=== PATIENT | female | born 1960 | race Caucasian/White ===

== ENCOUNTER 2023-07-15 23:28 | Observation (INO) ==
--- NOTE | 2023-07-16 00:14 | XRay Report ---
SINGLE VIEW CHEST CLINICAL HISTORY: Hypertension. Headache. FINDINGS: An AP, portable, upright chest radiograph is compared to chest x-ray and chest CT dated 11/25. The patient is status post midline sternotomy. The heart is enlarged. The pulmonary vasculatu re is noncongested. 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 Chronic interstiti al thickening is similar to previous. There is mild bibasilar scarring/atelectasis. No airspace conso lidation or large pleural effusion is identified. No pneumothorax is seen. The skeletal structures ar e osteopenic. The bony thorax is grossly intact. IMPRESSION: 1. Cardiomegaly with no acute cardiopulmonary abnormality identified. 2. 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 ACT 112: Negative or not required by law. Electronically signed by: Jamari Glass M.D. 07/16/2023 12:13 AM
[2023-07-16] MEDS ORDERED: SODIUM CHLORIDE 0.9% 1,000 ML IV SCH (00:15)
[2023-07-16] MEDS ORDERED: OPTIRAY 320 125ml IV ONE ×2 (00:27→00:59)
--- NOTE | 2023-07-16 00:28 | Emergency Department Note ---
Impression & Plan Headache, Hypertensive urgency, Chronic thoracic aortic dissection ED Provider Note NAME: KARINA HART AGE: 62 SEX: Female INFORMANT: Patient ED PROVIDER(S): William Tse MD CHIEF COMPLAINT: Headache PLAN: Disposition: Admitted Outpatient prescription management: none Referral: None MEDICAL DECISION MAKING: Patient presented because of headache that was sudden in onset. She notes a history of migraines but states this feels different. Patient was concerned about her blood pressure. She is unsure of her blood pressure medications that she takes but states that she takes them regularly. She had a nonfocal neurologic examination. No nuchal rigidity. She was significantly hypertensive and based on record review this was much higher than her usual BPs on presentation. The patient was monitored. She was started on gentle IV fluids as well as IV acetaminophen. I-STAT performed. She had CT and CT angiography ordered. I was contacted by CT as they were concerned that the patient appears to have a dissection of the aortic arch and base of the carotids. Additional CT imaging was ordered to cover the aorta and further evaluate. I did review the patient's records. She was diagnosed with a thoracic aortic dissection in November of this year. Stat read was contacted for an emergent read. Patient was given 10 mg of IV labetalol as she was still very hypertensive. Record review indicates the patient's blood pressure is typically in the normal range and this is not consistent with her prior measurements. Patient did require a second dose of medication for blood pressure control. Due to her heart rate being in the 50s labetalol was held and she was given a dose of hydralazine. Patient did refuse the IV acetaminophen. She was having significant improvement of her pain without analgesia. CT of the head and CT angiography of the head did not reveal any acute findings. No aneurysm or bleed. The CT of the chest abdomen pelvis appears to have chronic stable findings. Patient's blood pressure is improving. Given the acute change in her blood pressure and symptoms of headache I discussed further management in the hospital. Patient initially was reluctant but then was in agreement. I am concerned about hypertensive urgency and feel that her blood pressure needs to be monitored and controlled due to her prior history of the dissection. Consultation was made with Dr. Jn Patel, [facility] service. Case discussed diagnostics reviewed. Patient was seen in the ER and admitted for further management Care/management discussed with: Discussed with manager specialty Level of care consideration(s): After review of the information above and other included data, I feel the patient requires escalation of care to admission Triage Nursing notes: reviewed and agree them. Vital Signs: reviewed and remarkable for severe hypertension Additional History obtained from: none Chronic Medical/Social Conditions affecting care: Thoracic aortic dissection history Prior/ Outside/ External records reviewed: none Differential Diagnosis: Hypertensive emergency, migraine headache, meningitis, sinusitis, CO exposure, ICH, SAH, infection, tumor, headache, sinus thrombosis, arterial dissection, as well as other pathologies. Diagnostics, independently interpreted by me: ECG: Twelve-lead ECG reveals sinus bradycardia at [address] No ST elevation or depression. Cardiac Monitoring: Cardiac monitoring ordered by me: The patient was placed on continuous cardiac monitoring and observed. It revealed a normal sinus rhythm at 61 beats per minute without ectopy or evidence of dysrhythmia. Medical decision rules: none Imaging studies: CT and CT angiography of the head, neck, chest abdomen pelvis reveals no acute intracranial findings. No aneurysm. Patient has chronic findings of thoracic dissection involving the carotids down through the iliac. There appears to be a chronic left renal insult. I refer you to the EMR for further details. HPI: 62 year old Female arrives for evaluation of headache that started just before arrival. Patient states that she was doing well all day today. She has a history of migraines but this feels different. She notes sudden onset of generalized headache. She described the pain as a 10 out of 10. She states her migraines are usually 8 or 9 out of 10. Patient denies any other symptoms. No trauma. She took no medication for the symptoms. Due to the level of pain the patient was concerned and called 911. Pt denies LOC, fevers, chills, diaphoresis, visual changes, neck pain, chest pain, breathing difficulties, nausea, vomiting, abdominal pain, back pain, melena, hematochezia, urinary symptoms, numbness, weakness, lymphadenopathy, rash, or other complaints. PAST MEDICAL HISTORY: See Below, hypertension, migraine PAST SURGICAL HISTORY: See Below, appendectomy SOCIAL HISTORY: See Below, non-smoker HOME MEDICATIONS: See Below ALLERGIES: See Below VITALS: See Below PHYSICAL EXAMINATION: GENERAL: Awake, alert, well-appearing, in no distress HENT: Normocephalic, atraumatic. Oropharynx unremarkable. EYES: Normal conjunctiva. Sclera non-icteric. PERRLA. EOMI. NECK: Inspection normal. Non-tender. Supple. No nuchal rigidity. FROM. No masses. RESPIRATORY: Clear to auscultation. No wheezes. No rales. Normal respiratory effort. CARDIAC: Normal rate. Normal rhythm. No murmurs. No rubs. Extremities warm and well perfused. Pulses equal. No JVD. GI: Soft, non-distended. No tenderness to palpation. No rebound or guarding. No masses. RECTAL: Deferred. MUSCULOSKELETAL: Atraumatic. Chest examination reveals no tenderness. The back is symmetrical on inspection without obvious abnormality. There is no CVA tenderness to palpation. No joint edema. LOWER EXTREMITIES: Calves are equal size bilaterally and non-tender. No edema. No discoloration. NEURO: Normal sensorium. No sensory or motor deficits noted. Cranial nerves II through XII intact. Speech normal. Normal rapid alternating movements. No drift. SKIN: No rash or jaundice noted. PROCEDURES: none CRITICAL CARE: I have personally spent 30 minutes of critical care time in the direct management of this patient. This includes bedside care, interpretation of diagnostic studies, and testing, discussion with consultants, patient, and other required patient management activities. These minutes are in excess of all separately billable procedures. OBSERVATION NOTE: none Past Med/Surg History Social History (System 02/16/20 @ 08:23 by Alena Soto) Smoking Status: Never smoker Second Hand Exposure: No; Do You Dip or Chew Tobacco: No; Hx Alcohol Use: No Hx Substance Use: No Preferred Language: Sinhala Current Living Situation: Alone current occupation: House keeper Feels Safe at Home: Yes Allergies Allergies Allergy/AdvReac Type Severity Reaction Status Date / Time No Known Allergies Allergy Unverified 07/16/23 02:17 Home Meds Home Medications Medication Instructions Recorded Confirmed aspirin 81 mg tablet,delayed 81 mg PO DAILY 07/16/23 07/16/23 release losartan 25 mg tablet 25 mg PO QAM 07/16/23 07/16/23 metoprolol succinate 50 mg 50 mg PO BID 07/16/23 07/16/23 tablet,extended release 24 hr rosuvastatin 10 mg tablet 10 mg PO QAM 07/16/23 07/16/23 Results & Data (ED) Vital Signs Vital Signs - 24 hr 07/15/23 23:35 07/15/23 23:35 07/15/23 23:36 Temperature 36.9 C Temperature Source Oral Pulse Rate 61 61 Pulse Rate from SpO2 Sensor Pulse Rhythm Regular Pulse Strength Normal Respiratory Rate 16 Respiratory Effort / Characteristics Non-Labored Spontaneous Respiratory Depth Normal Respiratory Pattern Regular Blood Pressure 199/93 H 199/93 H Blood Pressure [Right Arm] Blood Pressure Mean 110 128 Blood Pressure Mean [Right Arm] Pulse Oximetry 96 Oxygen Delivery Method Room Air Sepsis Recent Fever Within 48 Hours No Sepsis New/Unexplained Change in Mental Status N/A Sepsis Action Taken by Nursing No Action Required 07/15/23 23:36 07/15/23 23:40 07/15/23 23:50 Temperature Temperature Source Pulse Rate 61 68 58 L Pulse Rate from SpO2 Sensor 61 59 L Pulse Rhythm Pulse Strength Respiratory Rate 15 17 16 Respiratory Effort / Characteristics Respiratory Depth Respiratory Pattern Blood Pressure Blood Pressure [Right Arm] Blood Pressure Mean Blood Pressure Mean [Right Arm] Pulse Oximetry 96 94 Oxygen Delivery Method Sepsis Recent Fever Within 48 Hours Sepsis New/Unexplained Change in Mental Status Sepsis Action Taken by Nursing 07/16/23 00:00 07/16/23 00:06 07/16/23 00:06 Temperature Temperature Source Pulse Rate 59 L 61 Pulse Rate from SpO2 Sensor 60 62 Pulse Rhythm Pulse Strength Respiratory Rate 15 15 Respiratory Effort / Characteristics Respiratory Depth Respiratory Pattern Blood Pressure 181/84 H Blood Pressure [Right Arm] Blood Pressure Mean 125 Blood Pressure Mean [Right Arm] Pulse Oximetry 95 96 Oxygen Delivery Method Sepsis Recent Fever Within 48 Hours Sepsis New/Unexplained Change in Mental Status Sepsis Action Taken by Nursing 07/16/23 00:10 07/16/23 00:20 07/16/23 00:52 Temperature Temperature Source Pulse Rate 60 58 L 74 Pulse Rate from SpO2 Sensor 59 L 59 L Pulse Rhythm Pulse Strength Respiratory Rate 16 14 7 L Respiratory Effort / Characteristics Respiratory Depth Respiratory Pattern Blood Pressure Blood Pressure [Right Arm] Blood Pressure Mean Blood Pressure Mean [Right Arm] Pulse Oximetry 94 94 Oxygen Delivery Method Sepsis Recent Fever Within 48 Hours Sepsis New/Unexplained Change in Mental Status Sepsis Action Taken by Nursing 07/16/23 00:53 07/16/23 00:53 07/16/23 01:00 Temperature Temperature Source Pulse Rate 69 Pulse Rate from SpO2 Sensor 69 Pulse Rhythm Pulse Strength Respiratory Rate 11 L Respiratory Effort / Characteristics Respiratory Depth Respiratory Pattern Blood Pressure 185/107 H Blood Pressure [Right Arm] 175/78 H Blood Pressure Mean 128 Blood Pressure Mean [Right Arm] 110 Pulse Oximetry 96 Oxygen Delivery Method Sepsis Recent Fever Within 48 Hours Sepsis New/Unexplained Change in Mental Status Sepsis Action Taken by Nursing 07/16/23 01:00 07/16/23 01:10 07/16/23 01:15 Temperature Temperature Source Pulse Rate 72 57 L 61 Pulse Rate from SpO2 Sensor 72 58 L Pulse Rhythm Pulse Strength Respiratory Rate 20 14 Respiratory Effort / Characteristics Respiratory Depth Respiratory Pattern Blood Pressure 175/78 H 173/82 H Blood Pressure [Right Arm] Blood Pressure Mean 110 Blood Pressure Mean [Right Arm] Pulse Oximetry 95 97 Oxygen Delivery Method Sepsis Recent Fever Within 48 Hours Sepsis New/Unexplained Change in Mental Status Sepsis Action Taken by Nursing 07/16/23 01:15 07/16/23 01:16 07/16/23 01:20 Temperature Temperature Source Pulse Rate 63 60 56 L Pulse Rate from SpO2 Sensor 62 63 55 L Pulse Rhythm Pulse Strength Respiratory Rate 15 21 9 L Respiratory Effort / Characteristics Respiratory Depth Respiratory Pattern Blood Pressure 173/82 H 170/98 H Blood Pressure [Right Arm] Blood Pressure Mean 112 122 Blood Pressure Mean [Right Arm] Pulse Oximetry 95 95 98 Oxygen Delivery Method Sepsis Recent Fever Within 48 Hours Sepsis New/Unexplained Change in Mental Status Sepsis Action Taken by Nursing 07/16/23 01:30 07/16/23 01:40 07/16/23 01:45 Temperature Temperature Source Pulse Rate 56 L 71 72 Pulse Rate from SpO2 Sensor 56 L 70 72 Pulse Rhythm Pulse Strength Respiratory Rate 14 12 14 Respiratory Effort / Characteristics Respiratory Depth Respiratory Pattern Blood Pressure 168/76 H 171/71 H Blood Pressure [Right Arm] Blood Pressure Mean 106 104 Blood Pressure Mean [Right Arm] Pulse Oximetry 97 97 98 Oxygen Delivery Method Sepsis Recent Fever Within 48 Hours Sepsis New/Unexplained Change in Mental Status Sepsis Action Taken by Nursing 07/16/23 02:00 07/16/23 02:01 07/16/23 02:10 Temperature Temperature Source Pulse Rate 75 77 73 Pulse Rate from SpO2 Sensor 75 78 73 Pulse Rhythm Pulse Strength Respiratory Rate 18 16 16 Respiratory Effort / Characteristics Respiratory Depth Respiratory Pattern Blood Pressure 163/50 H Blood Pressure [Right Arm] Blood Pressure Mean 87 Blood Pressure Mean [Right Arm] Pulse Oximetry 97 96 96 Oxygen Delivery Method Sepsis Recent Fever Within 48 Hours Sepsis New/Unexplained Change in Mental Status Sepsis Action Taken by Nursing 07/16/23 02:12 07/16/23 02:12 07/16/23 02:15 Temperature Temperature Source Pulse Rate 61 62 Pulse Rate from SpO2 Sensor 63 60 Pulse Rhythm Pulse Strength Respiratory Rate 15 13 Respiratory Effort / Characteristics Respiratory Depth Respiratory Pattern Blood Pressure 165/70 H 165/68 H Blood Pressure [Right Arm] Blood Pressure Mean 86 100 Blood Pressure Mean [Right Arm] Pulse Oximetry 99 96 Oxygen Delivery Method Sepsis Recent Fever Within 48 Hours Sepsis New/Unexplained Change in Mental Status Sepsis Action Taken by Nursing 07/16/23 02:20 07/16/23 02:30 07/16/23 02:40 Temperature Temperature Source Pulse Rate 64 62 76 Pulse Rate from SpO2 Sensor 64 61 75 Pulse Rhythm Pulse Strength Respiratory Rate 14 13 14 Respiratory Effort / Characteristics Respiratory Depth Respiratory Pattern Blood Pressure 159/74 H 148/75 H Blood Pressure [Right Arm] Blood Pressure Mean 102 99 Blood Pressure Mean [Right Arm] Pulse Oximetry 96 95 96 Oxygen Delivery Method Sepsis Recent Fever Within 48 Hours Sepsis New/Unexplained Change in Mental Status Sepsis Action Taken by Nursing 07/16/23 03:45 Temperature Temperature Source Pulse Rate 68 Pulse Rate from SpO2 Sensor Pulse Rhythm Pulse Strength Respiratory Rate Respiratory Effort / Characteristics Respiratory Depth Respiratory Pattern Blood Pressure Blood Pressure [Right Arm] Blood Pressure Mean Blood Pressure Mean [Right Arm] Pulse Oximetry Oxygen Delivery Method Sepsis Recent Fever Within 48 Hours Sepsis New/Unexplained Change in Mental Status Sepsis Action Taken by Nursing Laboratory Data 07/15/23 23:48 07/15/23 23:48 Lab Results 07/15/23 Range/Units 23:48 WBC 8.83 (4.8-10.8) K/ul RBC 4.82 (4.20-5.40) M/uL Hgb 13.7 (12.0-16.0) g/dl Hct 41.0 (37.0-47.0) % MCV 85.1 (80.0-100.0) fL MCH 28.4 (25.0-34.0) pg MCHC 33.4 (32.0-36.0) g/dL RDW Std Deviation 40.7 (36.4-46.3) fL RDW Coeff of Amada 13.1 (11.5-14.5) % Plt Count 169 (130-400) K/uL MPV 13.7 H (9.4-12.4) fL PT 10.7 (9.0-12.0) Seconds INR 1.0 (0.9-1.1) APTT 27.6 (21.0-31.0) Seconds PTT Ratio 1.0 Sodium 139 (136-145) mmol/L Potassium 3.9 (3.5-5.1) mmol/L Chloride 108 H (98-107) mmol/L Carbon Dioxide 27 (21-32) mmol/L Anion Gap 4 (3-11) BUN 16 (6-23) mg/dl Creatinine 0.87 (0.6-1.2) mg/dl Est Cr Clr Drug Dosing 67.0 ml/min Est GFR ( Amer) 82.8 ml/min Est GFR (Non-Af Amer) 71.4 ml/min BUN/Creatinine Ratio 18.4 (10-20) Glucose 115 H (70-99(Fasting)) mg/dl Calcium 10.6 H (8.6-10.3) mg/dl Magnesium 2.0 (1.7-2.4) mg/dl Total Bilirubin 0.3 (0.2-1.0) mg/dl AST 29 (13-39) U/L ALT 34 (7-52) U/L Alkaline Phosphatase 123 H (34-104) U/L Total Protein 6.9 (6.0-8.3) gm/dl Albumin 4.2 (3.4-5.0) gm/dl Globulin 2.7 (2.5-4.0) gm/dl Albumin/Globulin Ratio 1.6 (0.9-2) Administered Medications Discontinued Medications Hydralazine HCl (Hydralazine Hcl 20 Mg/Ml Vial) 5 mg IV NOW ONE Stop: 07/16/23 01:25 Last Admin: 07/16/23 01:36 Dose: 5 mg Documented By: Acetaminophen (Ofirmev) 1,000 mg in 100 mls @ 400 mls/hr IV NOW STA Stop: 07/16/23 00:16 Last Admin: 07/16/23 01:13 Dose: Not Given Documented By: Sodium Chloride (Nss) 1,000 mls @ 125 mls/hr IV .Q8H ESE Stop: 08/15/23 00:14 Last Admin: 07/16/23 00:53 Dose: 125 mls/hr Documented By: Ioversol (Optiray 320 125ml) 125 ml IV ONCE ONE Stop: 07/16/23 00:28 Last Admin: 07/16/23 00:28 Dose: 117 ml Documented By: ALICE Ioversol (Optiray 320 125ml) 125 ml IV ONCE ONE Stop: 07/16/23 01:00 Last Admin: 07/16/23 00:59 Dose: 117 ml Documented By: ALICE Labetalol HCl (Labetalol Hcl Iv 5 Mg/Ml 20ml) 10 mg IV NOW STA Stop: 07/16/23 00:42 Last Admin: 07/16/23 00:53 Dose: 10 mg Documented By: HAYLEY Co-signed By: BRIGID Labetalol HCl (Labetalol Hcl Iv 5 Mg/Ml 20ml) 10 mg IV NOW STA Stop: 07/16/23 01:18 Last Admin: 07/16/23 01:39 Dose: Not Given Documented By: Imaging Data Radiologist's Impression: Chest X-Ray 07/15/23 23:38 SINGLE VIEW CHEST CLINICAL HISTORY: Hypertension. Headache. FINDINGS: An AP, portable, upright chest radiograph is compared to chest x-ray and chest CT dated 12/19/2022. The patient is status post midline sternotomy. The heart is enlarged. The pulmonary vasculature is noncongested. 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 Chronic interstitial thickening is similar to previous. There is mild bibasilar scarring/atelectasis. No airspace consolidation or large pleural effusion is identified. No pneumothorax is seen. The skeletal structures are osteopenic. The bony thorax is grossly intact. IMPRESSION: 1. Cardiomegaly with no acute cardiopulmonary abnormality identified. 2. 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 ACT 112: Negative or not required by law. Electronically signed by: Jamari Glass M.D. 07/16/2023 12:13 AM Head CTA 07/15/23 23:51 Exam(s): CTA HEAD W/WO Contrast IV Amt: 117 ML OPTIRAY 320 EXAM: CT Angiography Head Without and With Intravenous Contrast CLINICAL HISTORY: Reason for exam: severe headache, HTN. TECHNIQUE: Axial computed tomographic angiography images of the head without and with intravenous contrast. Automated exposure control was utilized for the study. A dose lowering technique was utilized adhering to the principles of ALARA. MIP reconstructed images were created and reviewed. CONTRAST: Patient received 117 ML OPTIRAY 320 of IV contrast COMPARISON: No relevant prior studies available. FINDINGS: VASCULATURE: Right internal carotid artery: No acute findings. Intracranial segment is patent with no significant stenosis. No aneurysm. Right anterior cerebral artery: Unremarkable. No occlusion or significant stenosis. No aneurysm. Right middle cerebral artery: Unremarkable. No occlusion or significant stenosis. No aneurysm. Right posterior cerebral artery: Unremarkable. No occlusion or significant stenosis. No aneurysm. Right vertebral artery: Unremarkable as visualized. Left internal carotid artery: No acute findings. Intracranial segment is patent with no significant stenosis. No aneurysm. Left anterior cerebral artery: Unremarkable. No occlusion or significant stenosis. No aneurysm. Left middle cerebral artery: Unremarkable. No occlusion or significant stenosis. No aneurysm. Left posterior cerebral artery: Unremarkable. No occlusion or significant stenosis. No aneurysm. Left vertebral artery: Unremarkable as visualized. Basilar artery: Unremarkable. No occlusion or significant stenosis. No aneurysm. HEAD: Brain: Mild age-appropriate cerebral atrophy. No focal brain lesion is identified. No hemorrhage. Ventricles: Unremarkable. No ventriculomegaly. Bones/joints: No acute fracture. Soft tissues: Unremarkable. Sinuses: Unremarkable as visualized. No acute sinusitis. Mastoid air cells: Unremarkable as visualized. No mastoid effusion. IMPRESSION: No acute findings in the arteries of the head/brain. Electronically signed by: Yahir Dong MD 07/16/23 01:21 AM Neck CTA 07/15/23 23:51 Exam(s): CTA NECK With Contrast IV Amt: 117 ML OPTIRAY 320 EXAM: CT Angiography Neck With Intravenous Contrast CLINICAL HISTORY: Reason for exam: severe headache. TECHNIQUE: Routine carotid CT angiography protocol was performed with intravenous contrast. NASCET criteria using the distal ICAs for comparison were used for evaluation of stenoses. Automated exposure control was utilized for the study. A dose lowering technique was utilized adhering to the principles of ALARA. MIP reconstructed images were created and reviewed. CONTRAST: Patient received 117 ML OPTIRAY 320 of IV contrast COMPARISON: None. FINDINGS: VASCULATURE: Right common carotid artery: There is 50% flattening of the proximal right common carotid artery due to the dissection flap in the brachiocephalic artery. No occlusion or significant stenosis. Right internal carotid artery: The right carotid bifurcation is widely patent. There is an irregular beating with 40% stenosis in a small nonflow limiting dissection flap in the distal right internal carotid artery consistent with fibromuscular dysplasia. Right external carotid artery: Unremarkable. No occlusion. Right vertebral artery: Unremarkable. No occlusion or significant stenosis. No dissection. Left common carotid artery: Unremarkable. No occlusion or significant stenosis. No dissection. Left internal carotid artery: Slight irregularity over the mid to distal left internal carotid artery likely mild fibromuscular dysplasia with 30% stenosis. No dissection. Left external carotid artery: Unremarkable. No occlusion. Left vertebral artery: The left vertebral artery is smaller than the right but widely patent with no focal stenosis or dissection. Aorta: Partial visualization of dissection area of the aortic arch. Please see CT angiogram of the chest for further information. There is 50% flattening of the proximal left common carotid artery due to the dissection flap in the aortic arch. NECK: Bones/joints: Unremarkable. No acute fracture. Soft tissues: Unremarkable. Lung apices: See above. CAROTID STENOSIS REFERENCE USING NASCET CRITERIA: % ICA stenosis = (1 - narrowest ICA diameter/diameter of distal cervical ICA) x 100. Mild - <50% stenosis. Moderate - 50-69% stenosis. Severe - 70-94% stenosis. Near occlusion - 95-99% stenosis. Occluded - 100% stenosis. IMPRESSION: 1. Partial visualization of dissection area of the aortic arch. Please see CT angiogram of the chest for further information. 2. There is 50% flattening of the proximal right common carotid artery due to the dissection flap in the brachiocephalic artery. 3. There is 50% flattening of the proximal left common carotid artery due to the dissection flap in the aortic arch. 4. The right carotid bifurcation is widely patent. There is an irregular beating with 40% stenosis in a small nonflow limiting dissection flap in the distal right internal carotid artery consistent with fibromuscular dysplasia. 5. Slight irregularity over the mid to distal left internal carotid artery likely mild fibromuscular dysplasia with 30% stenosis. Electronically signed by: Yahir Dong MD 07/16/23 01:17 AM Chest CTA 07/16/23 00:42 Exam(s): CTA CHEST W/WO Contrast IV Amt: 117 ML OPTIRAY 320 EXAM: CT Angiography Chest Without and With Intravenous Contrast CLINICAL HISTORY: Reason for exam: DISSECTION. TECHNIQUE: Axial computed tomographic angiography images of the chest without and with intravenous contrast. CTDI is 15.43 mGy and DLP is 1015.22 mGy-cm. Automated exposure control was utilized for the study. A dose lowering technique was utilized adhering to the principles of ALARA. MIP reconstructed images were created and reviewed. CONTRAST: Patient received 117 ML OPTIRAY 320 of IV contrast COMPARISON: December 19, 2022 FINDINGS: Pulmonary arteries: Unremarkable. No pulmonary embolism. Aorta: There are sternal wires which are new since previous. 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 The graft is widely patent. There is a residual dissection flap involving the aortic arch and brachiocephalic artery with mild 50% narrowing of the common carotid arteries bilaterally, unchanged. The subclavian artery is widely patent. Ectasia of the distal aortic arch and proximal descending thoracic aorta measuring 4 cm in diameter which is slightly larger than previous when it measured 3.6 cm. The dissection flap extends down through the thoracic aorta into the abdominal aorta. Both lumens are well opacified with contrast. Lungs: Mild scattered subsegmental atelectasis or scarring in the lungs. No new infiltrate, pneumothorax, or pleural fluid collection is identified. No mass. Pleural space: See above. Heart: The heart is mildly enlarged. No pericardial effusion is seen. No evidence of RV dysfunction. Bones/joints: No acute fracture. No dislocation. Soft tissues: Unremarkable. Lymph nodes: Unremarkable. No enlarged lymph nodes. IMPRESSION: 1. There are sternal wires which are new since previous. 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 The graft is widely patent. There is a residual dissection flap involving the aortic arch and brachiocephalic artery with mild 50% narrowing of the common carotid arteries bilaterally, unchanged. The subclavian artery is widely patent. 2. Ectasia of the distal aortic arch and proximal descending thoracic aorta measuring 4 cm in diameter which is slightly larger than previous when it measured 3.6 cm. The dissection flap extends down through the thoracic aorta into the abdominal aorta. Both lumens are well opacified with contrast. 3. Mild scattered subsegmental atelectasis or scarring in the lungs. No new infiltrate, pneumothorax, or pleural fluid collection is identified. 4. The heart is mildly enlarged. No pericardial effusion is seen. Electronically signed by: Yahir Dong MD 07/16/23 02:09 AM Abdomen/Pelvis CTA 07/16/23 00:43 Exam(s): CTA ABDOMEN + PELVIS W/WO Contrast IV Amt: 117 ML OPTIRAY 320 EXAM: CT Angiography Abdomen and Pelvis Without and With Intravenous Contrast CLINICAL HISTORY: Reason for exam: DISSECTION. TECHNIQUE: Axial computed tomographic angiography images of the abdomen and pelvis without and with intravenous contrast. Automated exposure control was utilized for the study. A dose lowering technique was utilized adhering to the principles of ALARA. MIP reconstructed images were created and reviewed. CONTRAST: Patient received 117 ML OPTIRAY 320 of IV contrast COMPARISON: December 19, 2022 FINDINGS: VASCULATURE: Aorta: There is a dissection flap extending down from the thoracic aorta through the abdominal aorta. The aorta is nondilated measuring 2.4 cm maximum diameter. The false lumen extends along the posterior aorta and the dissection flap extends into the left common iliac artery terminating at the level of the left internal iliac artery. 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 No acute endorgan ischemia is identified. Renal arteries: The left renal artery arises from the false lumen. The parenchyma enhances fairly symmetrically compared to the right. 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 No occlusion or significant stenosis. Iliac arteries: No acute findings. No occlusion or significant stenosis. Lung bases: Unremarkable. No mass. No consolidation. ABDOMEN: Liver: Unremarkable. No mass. Gallbladder and bile ducts: Unremarkable. No calcified stones. No ductal dilation. Pancreas: Unremarkable. No ductal dilation. No mass. Spleen: Unremarkable. No splenomegaly. Adrenals: Unremarkable. No mass. Kidneys and ureters: See above. Stomach and bowel: Unremarkable. No obstruction. No mucosal thickening. PELVIS: Appendix: The appendix is not visible. Bowel loops are nondilated. No acute inflammatory changes are seen involving the bowel. Bladder: Unremarkable. No stones. No mass. Reproductive: Unremarkable as visualized. ABDOMEN and PELVIS: Intraperitoneal space: Unremarkable. No significant fluid collection. No free air. Bones/joints: No acute fracture. No dislocation. Soft tissues: Unremarkable. Lymph nodes: Unremarkable. No enlarged lymph nodes. IMPRESSION: 1. There is a dissection flap extending down from the thoracic aorta through the abdominal aorta. The aorta is nondilated measuring 2.4 cm maximum diameter. The false lumen extends along the posterior aorta and the dissection flap extends into the left common iliac artery terminating at the level of the left internal iliac artery. 2. 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 No acute endorgan ischemia is identified. 3. The left renal artery arises from the false lumen. The parenchyma enhances fairly symmetrically compared to the right. 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 4. The appendix is not visible. Bowel loops are nondilated. No acute inflammatory changes are seen involving the bowel. Electronically signed by: Yahir Dong MD 07/16/23 02:15 AM Discharge Plan Visit Data Chief Complaint: Headache Stated Complaint: Headache, Hypertension ED Provider: William Tse Discharge Problem: Headache, Hypertensive urgency, Chronic thoracic aortic dissection Forms Stand Alone Forms: My [facility] [employer] Prescriptions Prescriptions: No Action metoprolol succinate 50 mg tablet extended release 24 hr 50 mg PO BID aspirin [Aspir-Low] 81 mg Tablet,Delayed Release (Dr/Ec) 81 mg PO DAILY losartan 25 mg tablet 25 mg PO QAM rosuvastatin 10 mg tablet 10 mg PO QAM Referrals Referrals: Marcelino Wright MD [Physician] -
[2023-07-16 00:29] LABS: Albumin Globulin Ratio 1.6 (0.9-2); Albumin Level 4.2 gm/dl (3.4-5.0); BUN Creatinine Ratio 18.4 (10-20); Bilirubin,Total 0.3 mg/dl (0.2-1.0); Calcium 10.6 mg/dl (8.6-10.3); Est GFR (African American) 82.8 ml/min; Est GFR (Non-African American) 71.4 ml/min; Globulin 2.7 gm/dl (2.5-4.0); Hemoglobin 13.7 g/dl (12.0-16.0); Mean Corpuscular Hemoglobin 28.4 pg (25.0-34.0); Mean Corpuscular Hgb Conc 33.4 g/dL (32.0-36.0); Mean Corpuscular Volume 85.1 fL (80.0-100.0); Mean Platelet Volume 13.7 fL (9.4-12.4); Platelet Count 169 K/uL (130-400); Potassium 3.9 mmol/L (3.5-5.1); RDW Coefficient of Variation 13.1 % (11.5-14.5); RDW Standard Deviation 40.7 fL (36.4-46.3); Red Blood Count 4.82 M/uL (4.20-5.40); Total Protein 6.9 gm/dl (6.0-8.3); White Blood Count 8.83 K/ul (4.8-10.8)
[2023-07-16] MEDS ORDERED: LABETALOL HCL IV 5 MG/ML 20ML IV STA ×2 (00:41→01:17)
[2023-07-16 00:44] LABS: Partial Thromboplastin Time 27.6 Seconds (21.0-31.0); Prothrombin Time 10.7 Seconds (9.0-12.0)
[2023-07-16] MEDS: ACETAMINOPHEN 1,000 MG/100 ML VIAL IV STA ×2 (00:53→01:13)
--- NOTE | 2023-07-16 01:18 | CT Scan Report ---
Exam(s): CTA NECK With Contrast IV Amt: 117 ML OPTIRAY 320 EXAM: CT Angiography Neck With Intravenous Contrast CLINICAL HISTORY: Reason for exam: severe headache. TECHNIQUE: Routine carotid CT angiography protocol was performed with intravenous contrast. NASCET criteria using the distal ICAs for comparison were used for evaluation of stenoses. Automated exposure control was utilized for the study. A dose lowering technique was utilized adhering to the principles of ALARA. MIP reconstructed images were created and reviewed. CONTRAST: Patient received 117 ML OPTIRAY 320 of IV contrast COMPARISON: None. FINDINGS: VASCULATURE: Right common carotid artery: There is 50% flattening of the proximal right common carotid artery due to the dissection flap in the brachiocephalic artery. No occlusion or significant stenosis. Right internal carotid artery: The right carotid bifurcation is widely patent. There is an irregular beating with 40% stenosis in a small nonflow limiting dissection flap in the distal right internal carotid artery consistent with fibromuscular dysplasia. Right external carotid artery: Unremarkable. No occlusion. Right vertebral artery: Unremarkable. No occlusion or significant stenosis. No dissection. Left common carotid artery: Unremarkable. No occlusion or significant stenosis. No dissection. Left internal carotid artery: Slight irregularity over the mid to distal left internal carotid artery likely mild fibromuscular dysplasia with 30% stenosis. No dissection. Left external carotid artery: Unremarkable. No occlusion. Left vertebral artery: The left vertebral artery is smaller than the right but widely patent with no focal stenosis or dissection. Aorta: Partial visualization of dissection area of the aortic arch. Please see CT angiogram of the chest for further information. There is 50% flattening of the proximal left common carotid artery due to the dissection flap in the aortic arch. NECK: Bones/joints: Unremarkable. No acute fracture. Soft tissues: Unremarkable. Lung apices: See above. CAROTID STENOSIS REFERENCE USING NASCET CRITERIA: % ICA stenosis = (1 - narrowest ICA diameter/diameter of distal cervical ICA) x 100. Mild - <50% stenosis. Moderate - 50-69% stenosis. Severe - 70-94% stenosis. Near occlusion - 95-99% stenosis. Occluded - 100% stenosis. IMPRESSION: 1. Partial visualization of dissection area of the aortic arch. Please see CT angiogram of the chest for further information. 2. There is 50% flattening of the proximal right common carotid artery due to the dissection flap in the brachiocephalic artery. 3. There is 50% flattening of the proximal left common carotid artery due to the dissection flap in the aortic arch. 4. The right carotid bifurcation is widely patent. There is an irregular beating with 40% stenosis in a small nonflow limiting dissection flap in the distal right internal carotid artery consistent with fibromuscular dysplasia. 5. Slight irregularity over the mid to distal left internal carotid artery likely mild fibromuscular dysplasia with 30% stenosis. Electronically signed by: Yahir Dong MD 07/16/23 01:17 AM
--- NOTE | 2023-07-16 01:21 | CT Scan Report ---
Exam(s): CTA HEAD W/WO Contrast IV Amt: 117 ML OPTIRAY 320 EXAM: CT Angiography Head Without and With Intravenous Contrast CLINICAL HISTORY: Reason for exam: severe headache, HTN. TECHNIQUE: Axial computed tomographic angiography images of the head without and with intravenous contrast. Automated exposure control was utilized for the study. A dose lowering technique was utilized adhering to the principles of ALARA. MIP reconstructed images were created and reviewed. CONTRAST: Patient received 117 ML OPTIRAY 320 of IV contrast COMPARISON: No relevant prior studies available. FINDINGS: VASCULATURE: Right internal carotid artery: No acute findings. Intracranial segment is patent with no significant stenosis. No aneurysm. Right anterior cerebral artery: Unremarkable. No occlusion or significant stenosis. No aneurysm. Right middle cerebral artery: Unremarkable. No occlusion or significant stenosis. No aneurysm. Right posterior cerebral artery: Unremarkable. No occlusion or significant stenosis. No aneurysm. Right vertebral artery: Unremarkable as visualized. Left internal carotid artery: No acute findings. Intracranial segment is patent with no significant stenosis. No aneurysm. Left anterior cerebral artery: Unremarkable. No occlusion or significant stenosis. No aneurysm. Left middle cerebral artery: Unremarkable. No occlusion or significant stenosis. No aneurysm. Left posterior cerebral artery: Unremarkable. No occlusion or significant stenosis. No aneurysm. Left vertebral artery: Unremarkable as visualized. Basilar artery: Unremarkable. No occlusion or significant stenosis. No aneurysm. HEAD: Brain: Mild age-appropriate cerebral atrophy. No focal brain lesion is identified. No hemorrhage. Ventricles: Unremarkable. No ventriculomegaly. Bones/joints: No acute fracture. Soft tissues: Unremarkable. Sinuses: Unremarkable as visualized. No acute sinusitis. Mastoid air cells: Unremarkable as visualized. No mastoid effusion. IMPRESSION: No acute findings in the arteries of the head/brain. Electronically signed by: Yahir Dong MD 07/16/23 01:21 AM
[2023-07-16] MEDS ORDERED: hydrALAZINE HCL 20 MG/ML VIAL IV ONE (01:24)
--- NOTE | 2023-07-16 02:10 | CT Scan Report ---
Exam(s): CTA CHEST W/WO Contrast IV Amt: 117 ML OPTIRAY 320 EXAM: CT Angiography Chest Without and With Intravenous Contrast CLINICAL HISTORY: Reason for exam: DISSECTION. TECHNIQUE: Axial computed tomographic angiography images of the chest without and with intravenous contrast. CTDI is 15.43 mGy and DLP is 1015.22 mGy-cm. Automated exposure control was utilized for the study. A dose lowering technique was utilized adhering to the principles of ALARA. MIP reconstructed images were created and reviewed. CONTRAST: Patient received 117 ML OPTIRAY 320 of IV contrast COMPARISON: December 19, 2022 FINDINGS: Pulmonary arteries: Unremarkable. No pulmonary embolism. Aorta: There are sternal wires which are new since previous. 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 The graft is widely patent. There is a residual dissection flap involving the aortic arch and brachiocephalic artery with mild 50% narrowing of the common carotid arteries bilaterally, unchanged. The subclavian artery is widely patent. Ectasia of the distal aortic arch and proximal descending thoracic aorta measuring 4 cm in diameter which is slightly larger than previous when it measured 3.6 cm. The dissection flap extends down through the thoracic aorta into the abdominal aorta. Both lumens are well opacified with contrast. Lungs: Mild scattered subsegmental atelectasis or scarring in the lungs. No new infiltrate, pneumothorax, or pleural fluid collection is identified. No mass. Pleural space: See above. Heart: The heart is mildly enlarged. No pericardial effusion is seen. No evidence of RV dysfunction. Bones/joints: No acute fracture. No dislocation. Soft tissues: Unremarkable. Lymph nodes: Unremarkable. No enlarged lymph nodes. IMPRESSION: 1. There are sternal wires which are new since previous. 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 The graft is widely patent. There is a residual dissection flap involving the aortic arch and brachiocephalic artery with mild 50% narrowing of the common carotid arteries bilaterally, unchanged. The subclavian artery is widely patent. 2. Ectasia of the distal aortic arch and proximal descending thoracic aorta measuring 4 cm in diameter which is slightly larger than previous when it measured 3.6 cm. The dissection flap extends down through the thoracic aorta into the abdominal aorta. Both lumens are well opacified with contrast. 3. Mild scattered subsegmental atelectasis or scarring in the lungs. No new infiltrate, pneumothorax, or pleural fluid collection is identified. 4. The heart is mildly enlarged. No pericardial effusion is seen. Electronically signed by: Yahir Dong MD 07/16/23 02:09 AM
--- NOTE | 2023-07-16 02:16 | CT Scan Report ---
Exam(s): CTA ABDOMEN + PELVIS W/WO Contrast IV Amt: 117 ML OPTIRAY 320 EXAM: CT Angiography Abdomen and Pelvis Without and With Intravenous Contrast CLINICAL HISTORY: Reason for exam: DISSECTION. TECHNIQUE: Axial computed tomographic angiography images of the abdomen and pelvis without and with intravenous contrast. Automated exposure control was utilized for the study. A dose lowering technique was utilized adhering to the principles of ALARA. MIP reconstructed images were created and reviewed. CONTRAST: Patient received 117 ML OPTIRAY 320 of IV contrast COMPARISON: December 19, 2022 FINDINGS: VASCULATURE: Aorta: There is a dissection flap extending down from the thoracic aorta through the abdominal aorta. The aorta is nondilated measuring 2.4 cm maximum diameter. The false lumen extends along the posterior aorta and the dissection flap extends into the left common iliac artery terminating at the level of the left internal iliac artery. 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 No acute endorgan ischemia is identified. Renal arteries: The left renal artery arises from the false lumen. The parenchyma enhances fairly symmetrically compared to the right. 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 No occlusion or significant stenosis. Iliac arteries: No acute findings. No occlusion or significant stenosis. Lung bases: Unremarkable. No mass. No consolidation. ABDOMEN: Liver: Unremarkable. No mass. Gallbladder and bile ducts: Unremarkable. No calcified stones. No ductal dilation. Pancreas: Unremarkable. No ductal dilation. No mass. Spleen: Unremarkable. No splenomegaly. Adrenals: Unremarkable. No mass. Kidneys and ureters: See above. Stomach and bowel: Unremarkable. No obstruction. No mucosal thickening. PELVIS: Appendix: The appendix is not visible. Bowel loops are nondilated. No acute inflammatory changes are seen involving the bowel. Bladder: Unremarkable. No stones. No mass. Reproductive: Unremarkable as visualized. ABDOMEN and PELVIS: Intraperitoneal space: Unremarkable. No significant fluid collection. No free air. Bones/joints: No acute fracture. No dislocation. Soft tissues: Unremarkable. Lymph nodes: Unremarkable. No enlarged lymph nodes. IMPRESSION: 1. There is a dissection flap extending down from the thoracic aorta through the abdominal aorta. The aorta is nondilated measuring 2.4 cm maximum diameter. The false lumen extends along the posterior aorta and the dissection flap extends into the left common iliac artery terminating at the level of the left internal iliac artery. 2. 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 No acute endorgan ischemia is identified. 3. The left renal artery arises from the false lumen. The parenchyma enhances fairly symmetrically compared to the right. 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 4. The appendix is not visible. Bowel loops are nondilated. No acute inflammatory changes are seen involving the bowel. Electronically signed by: Yahir Dong MD 07/16/23 02:15 AM
[2023-07-16] MEDS ORDERED: SODIUM CHLORIDE 0.9% 1,000 ML IV ONE (03:07)
[2023-07-16] MEDS ORDERED: LOSARTAN POTASSIUM 50 MG TAB PO STA (03:42)
--- NOTE | 2023-07-16 03:43 | History & Physical Report ---
Date of Service July 16, 2023 Assessment & Plan (1) Hypertensive crisis: Plan: hyperlipidemia, on statin Rx hx aortic dissection status post surgery OBS PCU Titrate losartan Add amlodipine if still uncontrolled on maximal dose losartan DVT prophylaxis with Lovenox subcu Full code Text document was generated using [employer] voice recognition software. It may contain grammatical or spelling errors. Kindly contact undersigned for clarification of any documentation item in question. History of Present Illness Chief Complaint: Headache Primary Care Provider: Dr. Juanita Garcia/Dr. Mary Heredia History obtained from patient, family, and records. Medical history significant for hypertension, hyperlipidemia, type A aortic dissection status post surgery, migraine. Last confinement [facility] December 19 2 December 24, 2022 for aortic dissection status post surgery. No significant postop complications as per records. Patient had sudden onset achy headache symptoms yesterday. Somewhat different from migraine attack. No chest pain, no SOB, no abdominal pain. Patient compliant with home medications. Denies unusual stress or exertion. Minimal response to Excedrin home medication which she takes for migraine attacks. Patient does not check her blood pressure at home. Highest SBP of 190s upon arrival at the ER. Patient given labetalol and hydralazine at the ER. SBP currently 140s, patient more comfortable. Medical History as above Surgical History : Aortic dissection surgery, radial fracture surgery Family History : No heart disease Personal/Social history : Non-smoker, no EtOH intake, cleaning work Allergies Allergy/AdvReac Type Severity Reaction Status Date / Time No Known Allergies Allergy Unverified 07/16/23 02:17 Home Medications Medication Instructions Recorded Confirmed Type aspirin 81 mg tablet,delayed 81 mg PO DAILY 07/16/23 07/16/23 History release losartan 25 mg tablet 25 mg PO QAM 07/16/23 07/16/23 History metoprolol succinate 50 mg 50 mg PO BID 07/16/23 07/16/23 History tablet,extended release 24 hr rosuvastatin 10 mg tablet 10 mg PO QAM 07/16/23 07/16/23 History Past Med/Surg History Social History (System 02/16/20 @ 08:23 by Alena Soto) Smoking Status: Never smoker Second Hand Exposure: No; Do You Dip or Chew Tobacco: No; Hx Alcohol Use: No Hx Substance Use: No Preferred Language: Faroese Current Living Situation: Alone current occupation: House keeper Feels Safe at Home: Yes Review of Systems Review of Systems: As per HPI, all other systems reviewed and negative Physical Exam Physical Exam: GENERAL: Comfortable, pleasant, no respiratory distress SKIN: Normal color, warm HEENT: [place] palpebral conjunctivae, no ptosis, dry buccal mucosa NECK : Supple, no tenderness CHEST : CTA, no tenderness HEART : Bradycardic, no obvious murmurs ABDOMEN: Some distention, nontender EXTREMITIES : No LE swelling/tenderness, no other conspicuous deformities noted NEUROLOGIC : Coherent, no facial asymmetry, no other gross focality Results & Data Results & Data Vital Signs (Past 12 Hours) Vital Signs Temp Pulse Resp BP BP Pulse Ox O2 Del Method 07/16/23 02:40 76 14 148/75 H 96 07/16/23 02:30 62 13 159/74 H 95 07/16/23 02:20 64 14 96 07/16/23 02:15 62 13 165/68 H 96 07/16/23 02:12 165/70 H 07/16/23 02:12 61 15 99 07/16/23 02:10 73 16 96 07/16/23 02:01 77 16 163/50 H 96 07/16/23 02:00 75 18 97 07/16/23 01:45 72 14 171/71 H 98 07/16/23 01:40 71 12 97 07/16/23 01:30 56 L 14 168/76 H 97 07/16/23 01:20 56 L 9 L 98 07/16/23 01:16 60 21 170/98 H 95 07/16/23 01:15 63 15 173/82 H 95 07/16/23 01:15 61 173/82 H 07/16/23 01:10 57 L 14 97 07/16/23 01:00 72 20 175/78 H 95 07/16/23 01:00 175/78 H 07/16/23 00:53 185/107 H 07/16/23 00:53 69 11 L 96 07/16/23 00:52 74 7 L 07/16/23 00:20 58 L 14 94 07/16/23 00:10 60 16 94 07/16/23 00:06 181/84 H 07/16/23 00:06 61 15 96 07/16/23 00:00 59 L 15 95 11/20/23 23:50 58 L 16 94 07/15/23 23:40 68 17 07/15/23 23:36 61 15 96 07/15/23 23:36 36.9 C 61 16 199/93 H 96 Room Air 07/15/23 23:35 199/93 H 07/15/23 23:35 61 Laboratory Results Laboratory Results WBC 8.83 K/ul (4.8-10.8) 07/15/23 23:48 RBC 4.82 M/uL (4.20-5.40) 07/15/23 23:48 Hgb 13.7 g/dl (12.0-16.0) 07/15/23 23:48 Hct 41.0 % (37.0-47.0) 07/15/23 23:48 MCV 85.1 fL (80.0-100.0) 07/15/23 23:48 MCH 28.4 pg (25.0-34.0) 07/15/23 23:48 MCHC 33.4 g/dL (32.0-36.0) 07/15/23 23:48 RDW Std Deviation 40.7 fL (36.4-46.3) 07/15/23 23:48 RDW Coeff of Amada 13.1 % (11.5-14.5) 07/15/23 23:48 Plt Count 169 K/uL (130-400) 07/15/23 23:48 MPV 13.7 fL (9.4-12.4) H 07/15/23 23:48 PT 10.7 Seconds (9.0-12.0) 07/15/23 23:48 INR 1.0 (0.9-1.1) 07/15/23 23:48 APTT 27.6 Seconds (21.0-31.0) 07/15/23 23:48 PTT Ratio 1.0 07/15/23 23:48 Sodium 139 mmol/L (136-145) 07/15/23 23:48 Potassium 3.9 mmol/L (3.5-5.1) 07/15/23 23:48 Chloride 108 mmol/L (98-107) H 07/15/23 23:48 Carbon Dioxide 27 mmol/L (21-32) 07/15/23 23:48 Anion Gap 4 (3-11) 07/15/23 23:48 BUN 16 mg/dl (6-23) 07/15/23 23:48 Creatinine 0.87 mg/dl (0.6-1.2) 07/15/23 23:48 Est Cr Clr Drug Dosing 67.0 ml/min 07/15/23 23:48 Est GFR ( Amer) 82.8 ml/min 07/15/23 23:48 Est GFR (Non-Af Amer) 71.4 ml/min 07/15/23 23:48 BUN/Creatinine Ratio 18.4 (10-20) 07/15/23 23:48 Glucose 115 mg/dl (70-99(Fasting)) H 07/15/23 23:48 Calcium 10.6 mg/dl (8.6-10.3) H 07/15/23 23:48 Magnesium 2.0 mg/dl (1.7-2.4) 07/15/23 23:48 Total Bilirubin 0.3 mg/dl (0.2-1.0) 07/15/23 23:48 AST 29 U/L (13-39) 07/15/23 23:48 ALT 34 U/L (7-52) 07/15/23 23:48 Alkaline Phosphatase 123 U/L (34-104) H 07/15/23 23:48 Total Protein 6.9 gm/dl (6.0-8.3) 07/15/23 23:48 Albumin 4.2 gm/dl (3.4-5.0) 07/15/23 23:48 Globulin 2.7 gm/dl (2.5-4.0) 07/15/23 23:48 Albumin/Globulin Ratio 1.6 (0.9-2) 07/15/23 23:48 Impressions Chest X-Ray 07/15/23 23:38 SINGLE VIEW CHEST CLINICAL HISTORY: Hypertension. Headache. FINDINGS: An AP, portable, upright chest radiograph is compared to chest x-ray and chest CT dated 12/19/2022. The patient is status post midline sternotomy. The heart is enlarged. The pulmonary vasculature is noncongested. 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 Chronic interstitial thickening is similar to previous. There is mild bibasilar scarring/atelectasis. No airspace consolidation or large pleural effusion is identified. No pneumothorax is seen. The skeletal structures are osteopenic. The bony thorax is grossly intact. IMPRESSION: 1. Cardiomegaly with no acute cardiopulmonary abnormality identified. 2. 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 ACT 112: Negative or not required by law. Electronically signed by: Jamari Glass M.D. 07/16/2023 12:13 AM Head CTA 07/15/23 23:51 Exam(s): CTA HEAD W/WO Contrast IV Amt: 117 ML OPTIRAY 320 EXAM: CT Angiography Head Without and With Intravenous Contrast CLINICAL HISTORY: Reason for exam: severe headache, HTN. TECHNIQUE: Axial computed tomographic angiography images of the head without and with intravenous contrast. Automated exposure control was utilized for the study. A dose lowering technique was utilized adhering to the principles of ALARA. MIP reconstructed images were created and reviewed. CONTRAST: Patient received 117 ML OPTIRAY 320 of IV contrast COMPARISON: No relevant prior studies available. FINDINGS: VASCULATURE: Right internal carotid artery: No acute findings. Intracranial segment is patent with no significant stenosis. No aneurysm. Right anterior cerebral artery: Unremarkable. No occlusion or significant stenosis. No aneurysm. Right middle cerebral artery: Unremarkable. No occlusion or significant stenosis. No aneurysm. Right posterior cerebral artery: Unremarkable. No occlusion or significant stenosis. No aneurysm. Right vertebral artery: Unremarkable as visualized. Left internal carotid artery: No acute findings. Intracranial segment is patent with no significant stenosis. No aneurysm. Left anterior cerebral artery: Unremarkable. No occlusion or significant stenosis. No aneurysm. Left middle cerebral artery: Unremarkable. No occlusion or significant stenosis. No aneurysm. Left posterior cerebral artery: Unremarkable. No occlusion or significant stenosis. No aneurysm. Left vertebral artery: Unremarkable as visualized. Basilar artery: Unremarkable. No occlusion or significant stenosis. No aneurysm. HEAD: Brain: Mild age-appropriate cerebral atrophy. No focal brain lesion is identified. No hemorrhage. Ventricles: Unremarkable. No ventriculomegaly. Bones/joints: No acute fracture. Soft tissues: Unremarkable. Sinuses: Unremarkable as visualized. No acute sinusitis. Mastoid air cells: Unremarkable as visualized. No mastoid effusion. IMPRESSION: No acute findings in the arteries of the head/brain. Electronically signed by: Yahir Dong MD 07/16/23 01:21 AM Neck CTA 07/15/23 23:51 Exam(s): CTA NECK With Contrast IV Amt: 117 ML OPTIRAY 320 EXAM: CT Angiography Neck With Intravenous Contrast CLINICAL HISTORY: Reason for exam: severe headache. TECHNIQUE: Routine carotid CT angiography protocol was performed with intravenous contrast. NASCET criteria using the distal ICAs for comparison were used for evaluation of stenoses. Automated exposure control was utilized for the study. A dose lowering technique was utilized adhering to the principles of ALARA. MIP reconstructed images were created and reviewed. CONTRAST: Patient received 117 ML OPTIRAY 320 of IV contrast COMPARISON: None. FINDINGS: VASCULATURE: Right common carotid artery: There is 50% flattening of the proximal right common carotid artery due to the dissection flap in the brachiocephalic artery. No occlusion or significant stenosis. Right internal carotid artery: The right carotid bifurcation is widely patent. There is an irregular beating with 40% stenosis in a small nonflow limiting dissection flap in the distal right internal carotid artery consistent with fibromuscular dysplasia. Right external carotid artery: Unremarkable. No occlusion. Right vertebral artery: Unremarkable. No occlusion or significant stenosis. No dissection. Left common carotid artery: Unremarkable. No occlusion or significant stenosis. No dissection. Left internal carotid artery: Slight irregularity over the mid to distal left internal carotid artery likely mild fibromuscular dysplasia with 30% stenosis. No dissection. Left external carotid artery: Unremarkable. No occlusion. Left vertebral artery: The left vertebral artery is smaller than the right but widely patent with no focal stenosis or dissection. Aorta: Partial visualization of dissection area of the aortic arch. Please see CT angiogram of the chest for further information. There is 50% flattening of the proximal left common carotid artery due to the dissection flap in the aortic arch. NECK: Bones/joints: Unremarkable. No acute fracture. Soft tissues: Unremarkable. Lung apices: See above. CAROTID STENOSIS REFERENCE USING NASCET CRITERIA: % ICA stenosis = (1 - narrowest ICA diameter/diameter of distal cervical ICA) x 100. Mild - <50% stenosis. Moderate - 50-69% stenosis. Severe - 70-94% stenosis. Near occlusion - 95-99% stenosis. Occluded - 100% stenosis. IMPRESSION: 1. Partial visualization of dissection area of the aortic arch. Please see CT angiogram of the chest for further information. 2. There is 50% flattening of the proximal right common carotid artery due to the dissection flap in the brachiocephalic artery. 3. There is 50% flattening of the proximal left common carotid artery due to the dissection flap in the aortic arch. 4. The right carotid bifurcation is widely patent. There is an irregular beating with 40% stenosis in a small nonflow limiting dissection flap in the distal right internal carotid artery consistent with fibromuscular dysplasia. 5. Slight irregularity over the mid to distal left internal carotid artery likely mild fibromuscular dysplasia with 30% stenosis. Electronically signed by: Yahir Dong MD 07/16/23 01:17 AM Chest CTA 07/16/23 00:42 Exam(s): CTA CHEST W/WO Contrast IV Amt: 117 ML OPTIRAY 320 EXAM: CT Angiography Chest Without and With Intravenous Contrast CLINICAL HISTORY: Reason for exam: DISSECTION. TECHNIQUE: Axial computed tomographic angiography images of the chest without and with intravenous contrast. CTDI is 15.43 mGy and DLP is 1015.22 mGy-cm. Automated exposure control was utilized for the study. A dose lowering technique was utilized adhering to the principles of ALARA. MIP reconstructed images were created and reviewed. CONTRAST: Patient received 117 ML OPTIRAY 320 of IV contrast COMPARISON: December 19, 2022 FINDINGS: Pulmonary arteries: Unremarkable. No pulmonary embolism. Aorta: There are sternal wires which are new since previous. 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 The graft is widely patent. There is a residual dissection flap involving the aortic arch and brachiocephalic artery with mild 50% narrowing of the common carotid arteries bilaterally, unchanged. The subclavian artery is widely patent. Ectasia of the distal aortic arch and proximal descending thoracic aorta measuring 4 cm in diameter which is slightly larger than previous when it measured 3.6 cm. The dissection flap extends down through the thoracic aorta into the abdominal aorta. Both lumens are well opacified with contrast. Lungs: Mild scattered subsegmental atelectasis or scarring in the lungs. No new infiltrate, pneumothorax, or pleural fluid collection is identified. No mass. Pleural space: See above. Heart: The heart is mildly enlarged. No pericardial effusion is seen. No evidence of RV dysfunction. Bones/joints: No acute fracture. No dislocation. Soft tissues: Unremarkable. Lymph nodes: Unremarkable. No enlarged lymph nodes. IMPRESSION: 1. There are sternal wires which are new since previous. 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 The graft is widely patent. There is a residual dissection flap involving the aortic arch and brachiocephalic artery with mild 50% narrowing of the common carotid arteries bilaterally, unchanged. The subclavian artery is widely patent. 2. Ectasia of the distal aortic arch and proximal descending thoracic aorta measuring 4 cm in diameter which is slightly larger than previous when it measured 3.6 cm. The dissection flap extends down through the thoracic aorta into the abdominal aorta. Both lumens are well opacified with contrast. 3. Mild scattered subsegmental atelectasis or scarring in the lungs. No new infiltrate, pneumothorax, or pleural fluid collection is identified. 4. The heart is mildly enlarged. No pericardial effusion is seen. Electronically signed by: Yahir Dong MD 07/16/23 02:09 AM Abdomen/Pelvis CTA 07/16/23 00:43 Exam(s): CTA ABDOMEN + PELVIS W/WO Contrast IV Amt: 117 ML OPTIRAY 320 EXAM: CT Angiography Abdomen and Pelvis Without and With Intravenous Contrast CLINICAL HISTORY: Reason for exam: DISSECTION. TECHNIQUE: Axial computed tomographic angiography images of the abdomen and pelvis without and with intravenous contrast. Automated exposure control was utilized for the study. A dose lowering technique was utilized adhering to the principles of ALARA. MIP reconstructed images were created and reviewed. CONTRAST: Patient received 117 ML OPTIRAY 320 of IV contrast COMPARISON: December 19, 2022 FINDINGS: VASCULATURE: Aorta: There is a dissection flap extending down from the thoracic aorta through the abdominal aorta. The aorta is nondilated measuring 2.4 cm maximum diameter. The false lumen extends along the posterior aorta and the dissection flap extends into the left common iliac artery terminating at the level of the left internal iliac artery. 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 No acute endorgan ischemia is identified. Renal arteries: The left renal artery arises from the false lumen. The parenchyma enhances fairly symmetrically compared to the right. 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 No occlusion or significant stenosis. Iliac arteries: No acute findings. No occlusion or significant stenosis. Lung bases: Unremarkable. No mass. No consolidation. ABDOMEN: Liver: Unremarkable. No mass. Gallbladder and bile ducts: Unremarkable. No calcified stones. No ductal dilation. Pancreas: Unremarkable. No ductal dilation. No mass. Spleen: Unremarkable. No splenomegaly. Adrenals: Unremarkable. No mass. Kidneys and ureters: See above. Stomach and bowel: Unremarkable. No obstruction. No mucosal thickening. PELVIS: Appendix: The appendix is not visible. Bowel loops are nondilated. No acute inflammatory changes are seen involving the bowel. Bladder: Unremarkable. No stones. No mass. Reproductive: Unremarkable as visualized. ABDOMEN and PELVIS: Intraperitoneal space: Unremarkable. No significant fluid collection. No free air. Bones/joints: No acute fracture. No dislocation. Soft tissues: Unremarkable. Lymph nodes: Unremarkable. No enlarged lymph nodes. IMPRESSION: 1. There is a dissection flap extending down from the thoracic aorta through the abdominal aorta. The aorta is nondilated measuring 2.4 cm maximum diameter. The false lumen extends along the posterior aorta and the dissection flap extends into the left common iliac artery terminating at the level of the left internal iliac artery. 2. 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 No acute endorgan ischemia is identified. 3. The left renal artery arises from the false lumen. The parenchyma enhances fairly symmetrically compared to the right. 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 4. The appendix is not visible. Bowel loops are nondilated. No acute inflammatory changes are seen involving the bowel. Electronically signed by: Yahir Dong MD 07/16/23 02:15 AM Diagnostic Findings EKG as per my interpretation :Rate 55, sinus bradycardia, normal axis, T wave abnormalities septal leads
[2023-07-16] MEDS ORDERED: MoRPHine SULFATE 4 MG/ML 1 ML CARP\\VIAL IV PRN (03:46)
[2023-07-16] MEDS ORDERED: LORazepam 0.5 MG TAB PO PRN (03:46)
[2023-07-16] MEDS ORDERED: PROMETHAZINE HCL 6.25 MG in SODIUM CHLORIDE 0.9% 50 ML IV PRN (03:46)
[2023-07-16] MEDS ORDERED: traMADol HCL 50 MG TABLET PO PRN (03:46)
[2023-07-16 04:52] LABS: Phosphorus 2.5 mg/dl (2.5-4.9)
[2023-07-16 05:13] LABS: Basophils # (auto) 0.05 K/uL (0.00-0.20); Basophils % (auto) 0.5 %; Eosinophils # (auto) 0.06 K/uL (0.00-0.50); Eosinophils % (auto) 0.6 %; Hematocrit (blood only) 38.8 % (37.0-47.0); Hemoglobin 12.9 g/dl (12.0-16.0); Immature Granulocytes # (auto) 0.04 K/uL (0.01-0.20); Immature Granulocytes % (auto) 0.4 %; Lymphocytes # (auto) 2.18 K/uL (1.20-3.40); Lymphocytes % (auto) 20.9 %; Mean Corpuscular Hemoglobin 27.8 pg (25.0-34.0); Mean Corpuscular Hgb Conc 33.2 g/dL (32.0-36.0); Mean Corpuscular Volume 83.6 fL (80.0-100.0); Mean Platelet Volume 13.1 fL (9.4-12.4); Monocytes # (auto) 0.61 K/uL (0.11-0.59); Monocytes % (auto) 5.8 %; Neutrophils # (auto) 7.49 K/uL (1.40-6.50); Neutrophils % (auto) 71.8 %; Platelet Count 161 K/uL (130-400); RDW Coefficient of Variation 13.2 % (11.5-14.5); RDW Standard Deviation 40.2 fL (36.4-46.3); Red Blood Count 4.64 M/uL (4.20-5.40); White Blood Count 10.43 K/ul (4.8-10.8)
[2023-07-16 05:40] LABS: Thyroid Stimulating Hormone 1.525 uIu/ml (0.300-4.500)
[2023-07-16 07:18] LABS: Calcium 10.2 mg/dl (8.6-10.3); Potassium 3.8 mmol/L (3.5-5.1)
[2023-07-16 07:24] LABS: BUN Creatinine Ratio 20.5 (10-20); Creatinine Clr Calc Pharmacy 79.8 ml/min; Est GFR (African American) 102.3 ml/min; Est GFR (Non-African American) 88.3 ml/min
[2023-07-16] MEDS ORDERED: METOPROLOL SUCC 50MG EXT REL TAB PO SCH (09:00)
[2023-07-16] MEDS ORDERED: ROSUVASTATIN CALCIUM 10 MG TAB PO SCH (09:00)
[2023-07-16] MEDS ORDERED: ASPIRIN 81 MG ECTAB PO SCH (09:00)
[2023-07-16] MEDS ORDERED: ENOXAPARIN INJ 40 MG/0.4 ML SYR SQ SCH (09:00)
[2023-07-16 15:12] LABS: iSTAT Creatinine 0.9 mg/dl (0.6-1.3); iSTAT Hemoglobin 12.9 g/dl (12.0-16.0); iSTAT Ionized Calcium 1.31 mmol/l (1.12-1.32); iSTAT Potassium 4.1 mmol/L (3.3-5.0)
--- NOTE | 2023-07-16 16:46 | Hospitalist Progress Note ---
Date of Service July 16, 2023 Assessment & Plan (1) Hypertensive urgency: Plan: (1) Hypertensive crisis/urgency Presented with sudden onset of headache BP was 199/93 and was given labetalol and hydralazine in er which improved BP. Patient wanted to signout AMA but agreed to stay until later today losartan dose increased to 50mg daily SBP in 150's discharged on losartan/hctz 50/12.5mg daily and continue home toprol xl Followup with PCP closely. hyperlipidemia, on statin Rx hx aortic dissection status post surgery Discharged to Followup with PCP on Jul 23 at 10:20am Lab: Bmp in 1-2 weeks as new BP med losartan/hctz prescribed and followup results with PCP. Admission and Anticipated Discharge Date Admission Date: July 16, 2023 Subjective Early in the morning patient wanted to signout AMA but agreed to stay atleast until late in the day denies any headache now no chest pain or sob no blurred vision resting comfortably Review of Systems Review of Systems: All systems reviewed & are unremarkable except as noted in HPI & below Physical Exam Physical Exam: General-Not in distress Head- atraumatic Neck- supple, no JVD. Lungs- clear to auscultation no wheezing or crackles. Heart- regular rhythm; no murmur, no gallop. Abdomen- normal bowel sounds, soft, nontender, no distension Extremities- no pretibial edema, no erythema seen Neuro- alert, oriented x 3; no facial palsy; no dysarthria; moves extremities. Skin- warm & dry Results & Data Results & Data Vital Signs (Past 12 Hours) Vital Signs Pulse Pulse Resp BP BP Pulse Ox O2 Del Method 07/16/23 11:00 62 16 132/73 96 Room Air 07/16/23 10:50 69 17 96 07/16/23 10:40 67 15 96 07/16/23 10:30 76 17 97 07/16/23 10:20 74 13 98 07/16/23 10:10 75 14 100 07/16/23 10:00 72 20 97 07/16/23 10:00 147/78 H 07/16/23 09:50 61 14 96 07/16/23 09:40 58 L 12 95 07/16/23 09:30 59 L 15 96 07/16/23 09:20 62 21 94 07/16/23 09:10 58 L 18 96 07/16/23 09:00 167/74 H 07/16/23 09:00 54 L 12 96 07/16/23 08:50 58 L 14 95 07/16/23 08:40 66 17 96 07/16/23 08:30 60 14 95 07/16/23 08:20 67 13 95 07/16/23 08:10 61 14 96 07/16/23 08:00 66 24 97 07/16/23 08:00 169/79 H 07/16/23 07:30 68 14 97 07/16/23 07:20 69 18 97 07/16/23 07:10 71 16 96 07/16/23 07:04 63 07/16/23 07:00 148/71 H 07/16/23 07:00 60 14 94 07/16/23 06:50 59 L 19 93 07/16/23 06:40 61 12 94 07/16/23 06:33 Room Air 07/16/23 06:30 65 14 95 07/16/23 06:20 59 L 13 94 07/16/23 06:10 54 L 14 97 07/16/23 06:09 71 16 96 07/16/23 06:09 138/62 07/16/23 06:00 57 L 14 94 07/16/23 05:50 61 12 96 07/16/23 05:40 61 14 94 07/16/23 05:30 60 19 94 07/16/23 05:20 58 L 12 94 07/16/23 05:10 62 21 94 07/16/23 05:00 60 15 93 07/16/23 04:50 62 20 94 07/16/23 04:40 60 15 95 Diagnostic Findings Laboratory Results WBC 10.43 K/ul (4.8-10.8) 07/16/23 04:51 RBC 4.64 M/uL (4.20-5.40) 07/16/23 04:51 Hgb 12.9 g/dl (12.0-16.0) 07/16/23 04:51 POC Hgb 12.9 g/dl (12.0-16.0) 07/16/23 00:06 Hct 38.8 % (37.0-47.0) 07/16/23 04:51 POC Hct 38 % (37-47) 07/16/23 00:06 MCV 83.6 fL (80.0-100.0) 07/16/23 04:51 MCH 27.8 pg (25.0-34.0) 07/16/23 04:51 MCHC 33.2 g/dL (32.0-36.0) 07/16/23 04:51 RDW Std Deviation 40.2 fL (36.4-46.3) 07/16/23 04:51 RDW Coeff of Amada 13.2 % (11.5-14.5) 07/16/23 04:51 Plt Count 161 K/uL (130-400) 07/16/23 04:51 MPV 13.1 fL (9.4-12.4) H 07/16/23 04:51 Immature Gran % (Auto) 0.4 % 07/16/23 04:51 Neut % (Auto) 71.8 % 07/16/23 04:51 Lymph % (Auto) 20.9 % 07/16/23 04:51 [place] % (Auto) 5.8 % 07/16/23 04:51 Eos % (Auto) 0.6 % 07/16/23 04:51 Baso % (Auto) 0.5 % 07/16/23 04:51 Neut # (Auto) 7.49 K/uL (1.40-6.50) H 07/16/23 04:51 Lymph # (Auto) 2.18 K/uL (1.20-3.40) 07/16/23 04:51 [place] # (Auto) 0.61 K/uL (0.11-0.59) H 07/16/23 04:51 Eos # (Auto) 0.06 K/uL (0.00-0.50) 07/16/23 04:51 Baso # (Auto) 0.05 K/uL (0.00-0.20) 07/16/23 04:51 Immature Gran # (Auto) 0.04 K/uL (0.01-0.20) 07/16/23 04:51 PT 10.7 Seconds (9.0-12.0) 07/15/23 23:48 INR 1.0 (0.9-1.1) 07/15/23 23:48 APTT 27.6 Seconds (21.0-31.0) 07/15/23 23:48 PTT Ratio 1.0 07/15/23 23:48 POC Sodium 140 mmol/L (135-144) 07/16/23 00:06 Sodium 142 mmol/L (136-145) 07/16/23 03:18 POC Potassium 4.1 mmol/L (3.3-5.0) 07/16/23 00:06 Potassium 3.8 mmol/L (3.5-5.1) 07/16/23 03:18 POC Chloride 105 mmol/L (101-112) 07/16/23 00:06 Chloride 110 mmol/L (98-107) H 07/16/23 03:18 Carbon Dioxide 22 mmol/L (21-32) 07/16/23 03:18 POC Total CO2 25 mmol/L (24-31) 07/16/23 00:06 Anion Gap 10 (3-11) 07/16/23 03:18 POC Anion Gap 16.0 mmol/L (16-25) 07/16/23 00:06 POC BUN 19 mg/dl (7-18) H 07/16/23 00:06 BUN 15 mg/dl (6-23) 07/16/23 03:18 Creatinine 0.73 mg/dl (0.6-1.2) 07/16/23 03:18 POC Creatinine 0.9 mg/dl (0.6-1.3) 07/16/23 00:06 Est Cr Clr Drug Dosing 79.8 ml/min 07/16/23 03:18 Est GFR ( Amer) 102.3 ml/min 07/16/23 03:18 Est GFR (Non-Af Amer) 88.3 ml/min 07/16/23 03:18 BUN/Creatinine Ratio 20.5 (10-20) H 07/16/23 03:18 Glucose 117 mg/dl (70-99(Fasting)) H 07/16/23 03:18 POC Glucose (other) 112 mg/dl (70-99) H 07/16/23 00:06 Calcium 10.2 mg/dl (8.6-10.3) 07/16/23 03:18 POC Ioniz Calcium Megha 1.31 mmol/l (1.12-1.32) 07/16/23 00:06 Phosphorus 2.5 mg/dl (2.5-4.9) 07/16/23 03:18 Magnesium 2.0 mg/dl (1.7-2.4) 07/15/23 23:48 Total Bilirubin 0.3 mg/dl (0.2-1.0) 07/15/23 23:48 AST 29 U/L (13-39) 07/15/23 23:48 ALT 34 U/L (7-52) 07/15/23 23:48 Alkaline Phosphatase 123 U/L (34-104) H 07/15/23 23:48 Total Protein 6.9 gm/dl (6.0-8.3) 07/15/23 23:48 Albumin 4.2 gm/dl (3.4-5.0) 07/15/23 23:48 Globulin 2.7 gm/dl (2.5-4.0) 07/15/23 23:48 Albumin/Globulin Ratio 1.6 (0.9-2) 07/15/23 23:48 TSH 1.525 uIu/ml (0.300-4.500) 07/16/23 03:18 Impressions Chest X-Ray 07/15/23 23:38 SINGLE VIEW CHEST CLINICAL HISTORY: Hypertension. Headache. FINDINGS: An AP, portable, upright chest radiograph is compared to chest x-ray and chest CT dated 12/19/2022. The patient is status post midline sternotomy. The heart is enlarged. The pulmonary vasculature is noncongested. 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 Chronic interstitial thickening is similar to previous. There is mild bibasilar scarring/atelectasis. No airspace consolidation or large pleural effusion is identified. No pneumothorax is seen. The skeletal structures are osteopenic. The bony thorax is grossly intact. IMPRESSION: 1. Cardiomegaly with no acute cardiopulmonary abnormality identified. 2. 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 ACT 112: Negative or not required by law. Electronically signed by: Jamari Glass M.D. 07/16/2023 12:13 AM Head CTA 07/15/23 23:51 Exam(s): CTA HEAD W/WO Contrast IV Amt: 117 ML OPTIRAY 320 EXAM: CT Angiography Head Without and With Intravenous Contrast CLINICAL HISTORY: Reason for exam: severe headache, HTN. TECHNIQUE: Axial computed tomographic angiography images of the head without and with intravenous contrast. Automated exposure control was utilized for the study. A dose lowering technique was utilized adhering to the principles of ALARA. MIP reconstructed images were created and reviewed. CONTRAST: Patient received 117 ML OPTIRAY 320 of IV contrast COMPARISON: No relevant prior studies available. FINDINGS: VASCULATURE: Right internal carotid artery: No acute findings. Intracranial segment is patent with no significant stenosis. No aneurysm. Right anterior cerebral artery: Unremarkable. No occlusion or significant stenosis. No aneurysm. Right middle cerebral artery: Unremarkable. No occlusion or significant stenosis. No aneurysm. Right posterior cerebral artery: Unremarkable. No occlusion or significant stenosis. No aneurysm. Right vertebral artery: Unremarkable as visualized. Left internal carotid artery: No acute findings. Intracranial segment is patent with no significant stenosis. No aneurysm. Left anterior cerebral artery: Unremarkable. No occlusion or significant stenosis. No aneurysm. Left middle cerebral artery: Unremarkable. No occlusion or significant stenosis. No aneurysm. Left posterior cerebral artery: Unremarkable. No occlusion or significant stenosis. No aneurysm. Left vertebral artery: Unremarkable as visualized. Basilar artery: Unremarkable. No occlusion or significant stenosis. No aneurysm. HEAD: Brain: Mild age-appropriate cerebral atrophy. No focal brain lesion is identified. No hemorrhage. Ventricles: Unremarkable. No ventriculomegaly. Bones/joints: No acute fracture. Soft tissues: Unremarkable. Sinuses: Unremarkable as visualized. No acute sinusitis. Mastoid air cells: Unremarkable as visualized. No mastoid effusion. IMPRESSION: No acute findings in the arteries of the head/brain. Electronically signed by: Yahir Dong MD 07/16/23 01:21 AM Neck CTA 07/15/23 23:51 Exam(s): CTA NECK With Contrast IV Amt: 117 ML OPTIRAY 320 EXAM: CT Angiography Neck With Intravenous Contrast CLINICAL HISTORY: Reason for exam: severe headache. TECHNIQUE: Routine carotid CT angiography protocol was performed with intravenous contrast. NASCET criteria using the distal ICAs for comparison were used for evaluation of stenoses. Automated exposure control was utilized for the study. A dose lowering technique was utilized adhering to the principles of ALARA. MIP reconstructed images were created and reviewed. CONTRAST: Patient received 117 ML OPTIRAY 320 of IV contrast COMPARISON: None. FINDINGS: VASCULATURE: Right common carotid artery: There is 50% flattening of the proximal right common carotid artery due to the dissection flap in the brachiocephalic artery. No occlusion or significant stenosis. Right internal carotid artery: The right carotid bifurcation is widely patent. There is an irregular beating with 40% stenosis in a small nonflow limiting dissection flap in the distal right internal carotid artery consistent with fibromuscular dysplasia. Right external carotid artery: Unremarkable. No occlusion. Right vertebral artery: Unremarkable. No occlusion or significant stenosis. No dissection. Left common carotid artery: Unremarkable. No occlusion or significant stenosis. No dissection. Left internal carotid artery: Slight irregularity over the mid to distal left internal carotid artery likely mild fibromuscular dysplasia with 30% stenosis. No dissection. Left external carotid artery: Unremarkable. No occlusion. Left vertebral artery: The left vertebral artery is smaller than the right but widely patent with no focal stenosis or dissection. Aorta: Partial visualization of dissection area of the aortic arch. Please see CT angiogram of the chest for further information. There is 50% flattening of the proximal left common carotid artery due to the dissection flap in the aortic arch. NECK: Bones/joints: Unremarkable. No acute fracture. Soft tissues: Unremarkable. Lung apices: See above. CAROTID STENOSIS REFERENCE USING NASCET CRITERIA: % ICA stenosis = (1 - narrowest ICA diameter/diameter of distal cervical ICA) x 100. Mild - <50% stenosis. Moderate - 50-69% stenosis. Severe - 70-94% stenosis. Near occlusion - 95-99% stenosis. Occluded - 100% stenosis. IMPRESSION: 1. Partial visualization of dissection area of the aortic arch. Please see CT angiogram of the chest for further information. 2. There is 50% flattening of the proximal right common carotid artery due to the dissection flap in the brachiocephalic artery. 3. There is 50% flattening of the proximal left common carotid artery due to the dissection flap in the aortic arch. 4. The right carotid bifurcation is widely patent. There is an irregular beating with 40% stenosis in a small nonflow limiting dissection flap in the distal right internal carotid artery consistent with fibromuscular dysplasia. 5. Slight irregularity over the mid to distal left internal carotid artery likely mild fibromuscular dysplasia with 30% stenosis. Electronically signed by: Yahir Dong MD 07/16/23 01:17 AM Chest CTA 07/16/23 00:42 Exam(s): CTA CHEST W/WO Contrast IV Amt: 117 ML OPTIRAY 320 EXAM: CT Angiography Chest Without and With Intravenous Contrast CLINICAL HISTORY: Reason for exam: DISSECTION. TECHNIQUE: Axial computed tomographic angiography images of the chest without and with intravenous contrast. CTDI is 15.43 mGy and DLP is 1015.22 mGy-cm. Automated exposure control was utilized for the study. A dose lowering technique was utilized adhering to the principles of ALARA. MIP reconstructed images were created and reviewed. CONTRAST: Patient received 117 ML OPTIRAY 320 of IV contrast COMPARISON: December 19, 2022 FINDINGS: Pulmonary arteries: Unremarkable. No pulmonary embolism. Aorta: There are sternal wires which are new since previous. 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 The graft is widely patent. There is a residual dissection flap involving the aortic arch and brachiocephalic artery with mild 50% narrowing of the common carotid arteries bilaterally, unchanged. The subclavian artery is widely patent. Ectasia of the distal aortic arch and proximal descending thoracic aorta measuring 4 cm in diameter which is slightly larger than previous when it measured 3.6 cm. The dissection flap extends down through the thoracic aorta into the abdominal aorta. Both lumens are well opacified with contrast. Lungs: Mild scattered subsegmental atelectasis or scarring in the lungs. No new infiltrate, pneumothorax, or pleural fluid collection is identified. No mass. Pleural space: See above. Heart: The heart is mildly enlarged. No pericardial effusion is seen. No evidence of RV dysfunction. Bones/joints: No acute fracture. No dislocation. Soft tissues: Unremarkable. Lymph nodes: Unremarkable. No enlarged lymph nodes. IMPRESSION: 1. There are sternal wires which are new since previous. 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 The graft is widely patent. There is a residual dissection flap involving the aortic arch and brachiocephalic artery with mild 50% narrowing of the common carotid arteries bilaterally, unchanged. The subclavian artery is widely patent. 2. Ectasia of the distal aortic arch and proximal descending thoracic aorta measuring 4 cm in diameter which is slightly larger than previous when it measured 3.6 cm. The dissection flap extends down through the thoracic aorta into the abdominal aorta. Both lumens are well opacified with contrast. 3. Mild scattered subsegmental atelectasis or scarring in the lungs. No new infiltrate, pneumothorax, or pleural fluid collection is identified. 4. The heart is mildly enlarged. No pericardial effusion is seen. Electronically signed by: Yahir Dong MD 07/16/23 02:09 AM Abdomen/Pelvis CTA 07/16/23 00:43 Exam(s): CTA ABDOMEN + PELVIS W/WO Contrast IV Amt: 117 ML OPTIRAY 320 EXAM: CT Angiography Abdomen and Pelvis Without and With Intravenous Contrast CLINICAL HISTORY: Reason for exam: DISSECTION. TECHNIQUE: Axial computed tomographic angiography images of the abdomen and pelvis without and with intravenous contrast. Automated exposure control was utilized for the study. A dose lowering technique was utilized adhering to the principles of ALARA. MIP reconstructed images were created and reviewed. CONTRAST: Patient received 117 ML OPTIRAY 320 of IV contrast COMPARISON: December 19, 2022 FINDINGS: VASCULATURE: Aorta: There is a dissection flap extending down from the thoracic aorta through the abdominal aorta. The aorta is nondilated measuring 2.4 cm maximum diameter. The false lumen extends along the posterior aorta and the dissection flap extends into the left common iliac artery terminating at the level of the left internal iliac artery. 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 No acute endorgan ischemia is identified. Renal arteries: The left renal artery arises from the false lumen. The parenchyma enhances fairly symmetrically compared to the right. 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 No occlusion or significant stenosis. Iliac arteries: No acute findings. No occlusion or significant stenosis. Lung bases: Unremarkable. No mass. No consolidation. ABDOMEN: Liver: Unremarkable. No mass. Gallbladder and bile ducts: Unremarkable. No calcified stones. No ductal dilation. Pancreas: Unremarkable. No ductal dilation. No mass. Spleen: Unremarkable. No splenomegaly. Adrenals: Unremarkable. No mass. Kidneys and ureters: See above. Stomach and bowel: Unremarkable. No obstruction. No mucosal thickening. PELVIS: Appendix: The appendix is not visible. Bowel loops are nondilated. No acute inflammatory changes are seen involving the bowel. Bladder: Unremarkable. No stones. No mass. Reproductive: Unremarkable as visualized. ABDOMEN and PELVIS: Intraperitoneal space: Unremarkable. No significant fluid collection. No free air. Bones/joints: No acute fracture. No dislocation. Soft tissues: Unremarkable. Lymph nodes: Unremarkable. No enlarged lymph nodes. IMPRESSION: 1. There is a dissection flap extending down from the thoracic aorta through the abdominal aorta. The aorta is nondilated measuring 2.4 cm maximum diameter. The false lumen extends along the posterior aorta and the dissection flap extends into the left common iliac artery terminating at the level of the left internal iliac artery. 2. 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 No acute endorgan ischemia is identified. 3. The left renal artery arises from the false lumen. The parenchyma enhances fairly symmetrically compared to the right. 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 4. The appendix is not visible. Bowel loops are nondilated. No acute inflammatory changes are seen involving the bowel. Electronically signed by: Yahir Dong MD 07/16/23 02:15 AM
--- NOTE | 2023-07-16 16:47 | Discharge Summary ---
Date of Service July 16, 2023 Admission HPI Per Admitting Provider History obtained from patient, family, and records. Medical history significant for hypertension, hyperlipidemia, type A aortic dissection status post surgery, migraine. [place] [facility] [place] December 24, [place] for aortic dissection status post surgery. No significant postop complications as per records. Patient had sudden onset achy headache symptoms yesterday. Somewhat different from migraine attack. No chest pain, no SOB, no abdominal pain. Patient compliant with home medications. Denies unusual stress or exertion. Minimal response to Excedrin home medication which she takes for migraine att acks. Patient does not check her blood pressure at home. Highest SBP of 190s upon arrival at the ER. Patient given labetalol and hydralazine at the ER. SBP currently 140s, patient more comfortable. Medical History as above Surgical History : Aortic dissection surgery, radial fracture surgery Family History : No heart disease Personal/Social history : Non-smoker, no EtOH intake, cleaning work Admission Exam Per Admitting Provider GENERAL: Comfortable, pleasant, no respiratory distress SKIN: Normal color, warm HEENT: [place] palpebral conjunctivae, no ptosis, dry buccal mucosa NECK : Supple, no tenderness CHEST : CTA, no tenderness HEART : Bradycardic, no obvious murmurs ABDOMEN: Some distention, nontender EXTREMITIES : No LE swelling/tenderness, no other conspicuous deformities noted NEUROLOGIC : Coherent, no facial asymmetry, no other gross focality Principal Diagnosis HTN urgency Discharge Data Allergies Allergy/AdvReac Type Severity Reaction Status Date / Time No Known Allergies Allergy Unverified 07/16/23 02:17 Consultations 07/16/23 03:15 ED Decision to Admit Stat Ordered Studies 07/15/23 23:51 CTA head wo/w [CT angio head wo/w] Stat CTA neck with con [CT angio neck with con] Stat 07/16/23 00:42 CT angio chest wo/w con Stat 07/16/23 00:43 CT angio abd pelvis wo/w con Stat Hospital Course (1) Hypertensive urgency: (1) Hypertensive urgency: Plan: (1) Hypertensive crisis/urgency Presented with sudden onset of headache BP was 199/93 and was given labetalol and hydralazine in er which improved BP. Patient wanted to signout AMA but agreed to stay until later today losartan dose increased to 50mg daily SBP in 150's discharged on losartan/hctz 50/12.5mg daily and continue home toprol xl Followup with PCP closely. hyperlipidemia, on statin Rx hx aortic dissection status post surgery Discharged to Followup with PCP on Jul 23 at 10:20am Lab: Bmp in 1-2 weeks as new BP med losartan/hctz prescribed and followup results with PCP. Total Time Total Time Spent Total Time Spent (In Minutes): 40 minutes Discharge Plan Discharge Items Patient Disposition: Home - Self-Care Reason For Visit: HTN CRISIS Discharge Diagnosis: HTN urgency Activity: Resume your previous activity Non-emergency contact: Primary Care Provider Call non-emergency contact if: you have any medication questions and your symptoms worsen Follow-up/Referrals: PCP,NO [Primary Care Provider] - Diet: Heart Healthy Addtl Attending Provider Instructions: Followup with PCP on July 23 at 10:20am. Monitor Blood pressure and if any questions call PCP. Lab: Bmp in 1-2 weeks as Blood pressure med changed and follow results with PCP. Pending Studies at Discharge: No Stand-Alone Forms: My Plan[employer], Smoking Cessation Medications and DC Order Prescriptions: New losartan-hydrochlorothiazide 50-12.5 mg tablet 1 tab PO DAILY Qty: 30 1RF Continued metoprolol succinate 50 mg tablet extended release 24 hr 50 mg PO BID aspirin [Aspir-Low] 81 mg Tablet,Delayed Release (Dr/Ec) 81 mg PO DAILY rosuvastatin 10 mg tablet 10 mg PO QAM Discontinued losartan 25 mg tablet 25 mg PO QAM Discharge Orders: Discharge Order (Routine); Ordered 07/16/23 Ordered By: Riccardo Bro Admission Data Admit Date/Time: 07/16/23 03:45 Attending Provider: Riccardo Bro Admit Provider: Jn Patel Primary Care Provider: PCP,NO Other Providers: Jn Patel
[2023-07-17] MEDS ORDERED: LOSARTAN POTASSIUM 50 MG TAB PO SCH (09:00)
--- NOTE | 2023-07-18 06:13 | Electrocardiogram Report ---
Test Reason : Blood Pressure : / mmHG Vent. Rate : 059 BPM Atrial Rate : 059 BPM P-R Int : 120 ms QRS Dur : 082 ms QT Int : 404 ms P-R-T Axes : 040 019 053 degrees QTc Int : 399 ms Sinus bradycardia When compared with ECG of 19-DEC-2022 10:10, No significant change was found Confirmed by Travis Silverio ([id number]) on 07/18/2023 6:12:56 AM Referred By: REFERRED SELF Confirmed By:Travis Silverio
== END 2023-07-16 18:09 | disposition home or self-care (01) ==
LOC: EDINP 23:28 → ED 23:28 → EDINP 07-16 04:32